=== PATIENT | male | born 1960 | race Caucasian/White ===

== ENCOUNTER → 2023-09-09 11:15 | Outpatient (CLI) | payer BC, SELFPAY ==
--- NOTE | 2023-09-09 11:39 | DI.RAD_ITS ---
Exam(s) XR FOOT LT COMPLETE EXAM: XR FOOT LT COMPLETE CLINICAL HISTORY: PAIN LEFT FOOT M79.672 1ST MTP PAIN, R/O FX, LESION DISLOCATION. TECHNIQUE: 2D digital imaging was performed of the left foot. Three images were obtained. AP, obli que and lateral views were obtained. COMPARISON: No exams were available for comparison FINDINGS: BONES: No acute fracture is present. No bony destructive lesion is seen. There is a small plantar gallito caneal spur. JOINTS: No dislocation present. There are mild degenerative changes seen at the 1st MTP joint. There are few well corticated osseous densities lateral to the MTP joint which appear chronic. SOFT TISSUE: Normal. IMPRESSION: No acute fracture or dislocation. There are degenerative changes seen at the 1st MTP joint. DATA REPOSITORY: RADIATION DOSE DELIVERED:
[2023-09-09 14:24] LABS: Abs Immature Grans 0.01 10^3/uL (0.0-0.06); Absolute Basophil Count 0.04 10^3/uL (0.0-0.2); Absolute Eosinophil Count 0.25 10^3/uL (0.0-0.7); Absolute Monocyte Count 0.48 10^3/uL (0.1-0.8); Absolute Neutrophil Count 3.49 10^3/uL (1.2-6.7); Basophils % 0.7; Eosinophils % 4.5; HCT 44.8 % (40.0-50.0); HGB 14.9 g/dL (13.5-17.5); Immature Grans % 0.2; Lymphocytes % 23.3; MCHC 33.3 % (32.0-36.0); MCV 93 fL (80-95); MPV 11.3 fL (8.0-11.0); Monocytes % 8.6; Neutrophils % 62.7; Platelet Count 219 10^3/uL (130-400); RDW 12.5 % (11.8-14.1); RDW-SD 43.1 fL; WBC 5.57 10^3/uL (4.4-10.8)
[2023-09-09 14:29] LABS: ESR 23 mm/hr (0-20)
[2023-09-09 14:35] LABS: C-Reactive Protein 0.98 mg/dL (<or=0.5)
== END ==
PROVIDERS: Visit Provider Physician Assistant
DX: M79.672 Pain in left foot (principal)
CPT/HCPCS: 85652; 73630; 84550; 85025; 86140